=== PATIENT | female | born 1950 | race Caucasian/White ===

== ENCOUNTER → 2018-08-03 12:13 | Outpatient (CLI) | payer MEDICARE, SELFPAY ==
--- NOTE | 2018-08-03 12:19 | XR_ITS ---
XR knee LT 4V HISTORY: ITS.REASON: BILAT KNEE PAIN ORDERING PHYSICIAN: Servando Amor MD PATIENT AGE: 67 years COMPARISON: None FINDINGS: There are moderate osteoarthritic changes of the medial compartment and patellofemoral joint with mild osteoarthritis of the lateral compartment. Osteophyte formation is present at the tibial spines. No fracture or dislocation. No lytic or blastic change. IMPRESSION: Moderate osteoarthritis
--- NOTE | 2018-08-03 12:19 | XR_ITS ---
XR knee RT 4V HISTORY: ITS.REASON: BILAT KNEE PAIN ORDERING PHYSICIAN: Servando Amor MD PATIENT AGE: 67 years COMPARISON: None FINDINGS There are moderate to severe osteoarthritic changes of the medial compartment with mild osteophyte arthritis of the patellofemoral joint and lateral compartment. There is mild to moderate spurring of the distal femur proximal tibia. There is mild lateral displacement of the tibia of approximately 5 mm. No fracture or dislocation. IMPRESSION: Moderate to severe osteoarthritis
== END ==
PROVIDERS: PCP Family Medicine; Visit Provider Family Medicine
DX: M25.562 Pain in left knee (principal); M25.561 Pain in right knee
CPT/HCPCS: 73564

== ENCOUNTER → 2019-05-13 14:08 | Outpatient (CLI) | payer MEDICARE, SELFPAY ==
--- NOTE | 2019-05-13 14:17 | XR_ITS ---
PROCEDURE: XR CHEST 2V CLINICAL HISTORY: COUGH COMPARISON: No exams were available for comparison FINDINGS: The cardiomediastinal silhouette and pulmonary vascularity are within normal limits. COPD changes. No lobar consolidation or collapse. There is a well-circumscribed nodular opacity overlying the T12 vertebral body on the lateral view and may represent a granuloma. Stability may be confirmed with follow-up. Coronary artery calcifications are present.. No acute bony abnormalities. IMPRESSION: No acute finding. COPD with possible granuloma in the lung base posteriorly. Stability may be confirmed with follow-up Dictated by: Ariel Win MD 05/13/2019 15:37 Electronically signed by Ariel Win MD in [place] 05/13/2019 15:37
== END ==
PROVIDERS: PCP Family Medicine; Visit Provider Family Medicine
DX: R05 Cough (principal)
CPT/HCPCS: 71046

== ENCOUNTER → 2019-08-22 09:25 | Outpatient (CLI) | payer MEDICARE, SELFPAY ==
--- NOTE | 2019-08-22 09:34 | XR_ITS ---
PROCEDURE: XR CHEST 2V CLINICAL HISTORY: COUGH Nonsmoker COMPARISON: XR CHEST 2V from 05/13/2019 FINDINGS: The cardiomediastinal silhouette and pulmonary vascularity are within normal limits. The lungs are clear without infiltrates, suspicious nodules, or pleural effusions. There are calcified hilar nodes bilaterally. No acute bony abnormalities. IMPRESSION: No acute findings. Dictated by: Dr. Warren Baker MD 08/22/2019 12:[address] Warren Baker MD in [place] 08/22/2019 12:02
== END ==
PROVIDERS: PCP Family Medicine; Visit Provider Family Medicine
DX: R05 Cough (principal)
CPT/HCPCS: 71046

== ENCOUNTER 2020-10-07 10:02 | Emergency (ER) | payer MEDICARE, MEDICAID, SELFPAY ==
[2020-10-07 10:03] VITALS: BP 207/91; PULSE 105; RESP 18; TEMP 36.6; O2SAT 96; BMI 43.1
--- NOTE | 2020-10-07 10:11 | ECG_ITS ---
APPROVED REPORT Exam: Resting ECG HR:96 bpm ECG Measurements Heart Rate 96 AXES ID 182 P 68 QRSd 84 QRS 22 QT 380 T 68 QTc 480 Conclusion Normal sinus rhythm Normal ECG Electronically signed by : Servando Bass, 10/08/2020 14:30:01
--- NOTE | 2020-10-07 10:17 | HMH.EDGENADL ---
ED Disposition Clinical Impression: Biliary colic, Uterine mass Cholelithiasis Qualifiers: Cholelithiasis location: gallbladder Cholecystitis presence: without cholecystitis Biliary obstruction: without biliary obstruction Qualified Code(s): K80.20 - Calculus of gallbladder without cholecystitis without obstruction Disposition: Home, Self-Care Condition on Discharge: Good Instructions: DI for Gallstones, Fat-Restricted Diet Additional Instructions: Low-fat diet. Follow-up with general surgery, call for appointment for gallstones. Follow-up with [facility] as soon as possible for mass of uterus. Percocet as needed for gallbladder attack, Zofran for nausea. Additional instructions for ABDOMINAL PAIN: See your physician as soon as possible for further evaluation. Return immediately if worsening abdominal pain, vomiting, shortness of breath, fever, vomiting of blood or abdominal distention. Additional instructions for CONTROLLED SUBSTANCES: You have been prescribed a medication that is a controlled substance. Controlled substances include pain medications known as opiates and sedative nerve medications known as benzodiazepines. Tramadol, fioricet, and gabapentin are also controlled substances. Some common opiates include: Codeine (such as Tylenol #3) Hydrocodone (Vicodin, Lortab, Lorcet, Comstock) Oxycodone (Percocet, Percodan, Oxycodone, Oxy IR) Some common benzodiazepines include: Diazepam (Valium) Lorazepam (Ativan) Alprazolam (Xanax) Clonazepam (Klonopin) Oxazepam (Serax) All of these controlled substances are highly addictive and frequently abused. Misuse can and frequently does lead to addiction as well as overdose and . Medication should be stored in a locked cabinet or other secure storage unit. Do not store the medication in a motor vehicle. Short term supplies, 3 days or less, are prescribed because of the highly addictive nature of the medication. Any of the controlled substance medication NOT taken should be disposed of properly and NOT SAVED. The recommended method of disposing of unused medications is: Place the medicines in a sealable plastic bag. If the medicine is a solid, crush it or add water to dissolve it. Add something undesirable (cat litter, coffee grounds, etc.) Dispose of sealed bag in household trash Do not flush or pour unused medicines down a sink or drain. Controlled substances should not be shared, given away or sold. Because of the addictive nature and frequent abuse, these medications are sometimes stolen. These medications should be kept in a safe place where they cannot be stolen. Do not keep them in your car or purse. Lost or stolen prescriptions for controlled substances WILL NOT BE REFILLED in this emergency department, regardless of whether a police report was filed. Prescriptions: Oxycodone HCl/Acetaminophen [Percocet 5/325mg tablet] 1 tab PO Q6HP PRN #10 tablet PRN Reason: Moderate To Severe Pain Transmission Status: Received by [id number] Ondansetron [Zofran 4mg ODT] 4 mg PO TIDP PRN #10 tab.rapdis PRN Reason: Nausea And Vomiting Transmission Status: Pending to [id number] Referrals: Thomas Irvin MD [Primary Care Provider] - - Critical Care Critical Care Time: No Attestation: On , the high probability of a clinically significant, sudden or life threatening deterioration of the following system(s) required my full and direct attention, intervention and personal management. The time I documented below is in addition to time spent performing reported procedures but includes the following listed in this critical care notation. Medical Decision Making - Gabriel Inquiry Pt receiving controlled substance: Yes Gabriel was queried for this patient: Yes Risks and benefits of using a controlled substance: were discussed with pt by me Vital Signs: 10/07/20 10:03 10/07/20 10:30 Temperature 97.8 F Temperature Source
--- NOTE | 2020-10-07 10:22 | CT_ITS ---
PROCEDURE: CT ABDOMEN PELVIS W CON CLINICAL INDICATION: abd pain, n/v COMPARISON: No exams were available for comparison TECHNIQUE: IV Contrast: 75ML OPTIRAY 350 Oral Contrast none given Axial images obtained with sagittal and coronal reformats. All CT scans at the facility use one or more dose reduction, viz: automated exposure control, ma/kV adjustment per patient size (including targeted exams where dose is matched to indication, i.e. head), or iterative reconstruction technique. FINDINGS: Lower thorax: The lower lung rodriguez are clear, there is a small calcified granuloma right posterior gutter ABDOMEN: Liver: No masses or biliary dilatation. Liver parenchyma appears normal. Gallbladder: Gallbladder is normal in size and there is a partially calcified gallstone near the neck gallbladder measuring 1.8 cm.. Pancreas: No masses or peripancreatic fluid collections. Spleen: unremarkable except for a couple of tiny calcified granulomata Adrenals: unremarkable Kidneys/ureters: The kidneys are normal in size and show symmetrical function. There is a tiny 2-3 mm nonobstructing calculus in the pelvis or lower pole calyx left kidney. ABDOMEN & PELVIS: Stomach bowel: There is a small sliding hiatal hernia. The stomach appears normal.. The small bowel is normal. The appendix is surgically absent. There is a moderately large amount of stool in the cecum ascending and transverse colon. The descending colon is decompressed. There are scattered diverticuli of the sigmoid colon but there is no evidence of diverticulitis. Peritoneum: No abnormal fluid collections. No obvious inflammatory changes. No free air. Lymph nodes: No enlarged lymph nodes apparent. Vasculature: No evidence of abdominal aortic aneurysm. There is scattered arteriosclerotic calcification of the lower abdominal aorta and proximal common iliac arteries. No retroperitoneal hemorrhage evident. Bones: No acute fracture PELVIS: Reproductive: The uterus is mildly enlarged and shows a somewhat suspicious appearing heterogenic mass filling and distorting the endometrial cavity with a possible small fluid component as well and large fibroid is a possibility but endometrial carcinoma cannot be excluded. Possibly and ultrasound exam would be of additional help. Bladder: The urinary bladder is decompressed but otherwise appears normal, there is no free fluid in the cul-de-sac.. Appendix: Surgically absent IMPRESSION: 1. Cholelithiasis 2. Mild diverticulosis sigmoid colon without diverticulitis. 3. Enlarged uterus measuring 8.1 x 7.0 x 10.0 cm with heterogenic mass filling the endometrial cavity and suggest clinical correlation for abnormal postmenopausal bleeding and consider follow-up ultrasound of the pelvis for additional evaluation Dictated by: Dr. Warren Baker MD 10/07/2020 11:41 Dr. Warren Baker MD in [place] 10/07/2020 11:41
[2020-10-07 10:30] VITALS: BP 168/69; PULSE 85; RESP 20; O2SAT 95
[2020-10-07 10:32] LABS: Basophils # 0.1 K/mm3 (0-0.2); Basophils % 0.4 % (0.1-2.0); Eosinophils # 0.1 K/mm3 (0.0-0.4); Eosinophils % 0.4 % (0.1-12.0); Hematocrit 44.6 % (37.0-47.0); Hemoglobin 15.2 g/dL (12.2-16.2); Lymphocytes # 1.4 K/mm3 (0.7-4.5); Lymphocytes % 8.8 % (10-50); Mean Corpuscular Hemoglobin 26.7 pg (27.0-31.2); Mean Corpuscular Volume 78.6 fl (81-99); Mean Platelet Volume 7.3 fl (7.4-10.4); Monocytes # 0.5 K/mm3 (0.1-1.0); Monocytes % 3.2 % (1.7-9.3); Neutrophils # 13.7 K/mm3 (1.8-7.8); Neutrophils % 87.2 % (37.0-80.0); Platelet Count 400 K/mm3 (142-424); Red Blood Count 5.68 M/mm3 (4.20-5.40); Red Cell Distribution Width 14.9 % (11.5-17.5); White Blood Count 15.7 K/mm3 (4.8-10.8)
[2020-10-07 10:35] LABS: Alanine Aminotransferase 26 U/L (12-78); Albumin Level 4.8 g/dl (3.5-5.0); Albumin/Globulin Ratio 1.2 (1.1-1.8); Alkaline Phosphatase 137 U/L (38-126); Aspartate Amino Transferase 26 U/L (14-36); Bilirubin,Total 0.6 mg/dl (0.2-1.3); Blood Urea Nitrogen 14 mg/dl (7-17); Calcium 9.4 mg/dl (8.4-10.2); Carbon Dioxide 24 mmol/L (22.0-30.0); Chloride 98 mmol/L (98-107); Creatinine Clearance Estimated 42 mL/min (50-200); Estimated Glomerular Filt Rate 99 ml/min (>60); GFR (African American) 120 ML/MIN (>60); Glucose 143 mg/dl (74-100); Lipase 53 U/L (23-300); MANUAL DIFFERENTIAL MANUAL DIFFERENTIAL (MANUAL DIFF); Sodium 135 mmol/L (136-145); Total Protein,Serum 8.8 g/dl (6.3-8.2)
--- NOTE | 2020-10-07 10:40 | US_ITS ---
PROCEDURE: US GALLBLADDER CLINICAL INDICATION: upper abdo pain COMPARISON: CT CT ABDOMEN PELVIS W CON from 10/07/2020 FINDINGS: Pancreas: Unremarkable/Not well seen but appears essentially normal on the CT exam same date. Liver: Unremarkable. There is appropriate direction of blood flow within a non dilated portal vein. Right kidney: The right kidney measures 11.1 x 5.1 by 5.7 cm appears sonographically normal. Gallbladder: The gallbladder is markedly abnormal with moderate amount of sludge some which appears to be congealed with partially calcified gallstones near the neck of the gallbladder as well. The common bile duct is normal in caliber. IMPRESSION: Cholelithiasis along with biliary sludge, liver pancreas and right kidney appear grossly normal Dictated by: Dr. Warren Baker MD 10/07/2020 12:28 Dr. Warren Baker MD in [place] 10/07/2020 12:28
[2020-10-07 10:52] LABS: Troponin I 0.01 ng/ml (0.00-0.034)
[2020-10-07 10:53] LABS: Eosinophils % 3 % (0-3); Lymphocytes % 4 % (10-50); Monocytes % 6 % (2-9); Myelocytes % 1 (0-1); Neutrophils % 80 % (42-76); Platelet Estimate Normal; Total Cells Counted 100
[2020-10-07 10:54] LABS: Microcytosis 1+
--- NOTE | 2020-10-07 10:58 | PC.NURSE ---
Pt in radiology
--- NOTE | 2020-10-07 11:32 | US_ITS ---
PROCEDURE: US TRANSVAGINAL CLINICAL INDICATION: Pelvic pain and intermittent uterine bleeding in this postmenopausal patient, abnormal CT scan of the pelvis COMPARISON: No exams were available for comparison FINDINGS: The uterus is enlarged as noted on the CT exam. There is distortion and almost complete effacement of the endometrial cavity by heterogenic mass with somewhat poor interface between the mass and what little myometrial tissue visible. The ovaries are not identified either on the transvaginal or transabdominal images. There is no free fluid in the pelvis. IMPRESSION: Enlarged uterus with large mass distorting the endometrial cavity, the poor interface between the mass and periphery of the uterus is somewhat in favor of endometrial carcinoma versus fibroid Dictated by: Dr. Warren Baker MD 10/07/2020 12:22 Dr. Warren Baker MD in [place] 10/07/2020 12:22
[2020-10-07 13:37] VITALS: BP 157/76; PULSE 79; RESP 16; TEMP 36.4; O2SAT 94
== END 2020-10-07 13:37 | disposition home or self-care (01) ==
PROVIDERS: Emergency Provider Emergency Medicine; PCP Emergency Medicine
DX: K80.20 Calculus of gallbladder without cholecystitis without obstruction (principal); K80.50 Calculus of bile duct without cholangitis or cholecystitis without obstruction; N85.8 Other specified noninflammatory disorders of uterus; I10 Essential (primary) hypertension; Z88.2 Allergy status to sulfonamides; Z79.899 Other long term (current) drug therapy
CPT/HCPCS: 74177; 76705; 76830; 80053; 83690; 84484; 85007; 85025; 93005; 96365; 96372; 99283; J2405; Q9967

== ENCOUNTER → 2020-12-04 10:42 | Outpatient (CLI) | payer MEDICARE, MEDICAID, SELFPAY | PROVIDERS: Visit Provider Nurse Practitioner Family | DX: Z01.812 Encounter for preprocedural laboratory examination (principal); Z20.822 Contact with and (suspected) exposure to COVID-19 | CPT/HCPCS: C9803; U0003; U0005 ==

== ENCOUNTER → 2020-12-07 08:17 | Outpatient (CLI) | payer MEDICARE, MEDICAID, SELFPAY | PROVIDERS: Visit Provider Nurse Practitioner Family | DX: Z01.812 Encounter for preprocedural laboratory examination (principal); Z20.822 Contact with and (suspected) exposure to COVID-19 | CPT/HCPCS: C9803; U0003; U0005 ==

== ENCOUNTER → 2021-06-14 16:00 | Outpatient (CLI) | payer MEDICARE, MEDICAID, SELFPAY ==
[2021-06-14 14:55] LABS: Basophils # 0.1 K/mm3 (0-0.2); Basophils % 0.6 % (0.1-2.0); Eosinophils # 0.1 K/mm3 (0.0-0.4); Hemoglobin 15.1 g/dL (12.2-16.2); Lymphocytes # 1.7 K/mm3 (0.7-4.5); Lymphocytes % 19.5 % (10-50); Mean Corpuscular HGB Conc 32.9 g/dL (31.8-35.4); Mean Corpuscular Hemoglobin 28.5 pg (27.0-31.2); Mean Corpuscular Volume 86.5 fl (81-99); Mean Platelet Volume 8.7 fl (7.4-10.4); Monocytes # 0.5 K/mm3 (0.1-1.0); Monocytes % 5.5 % (1.7-9.3); Neutrophils # 6.5 K/mm3 (1.8-7.8); Neutrophils % 73.4 % (37.0-80.0); Platelet Count 365 K/mm3 (142-424); Red Blood Count 5.32 M/mm3 (4.20-5.40); Red Cell Distribution Width 14.9 % (11.5-17.5); White Blood Count 8.9 K/mm3 (4.8-10.8)
[2021-06-14 16:21] LABS: Free T4 (Free Thyroxine) 1.23 ng/dl (0.78-2.19)
[2021-06-14 16:32] LABS: Anion Gap 11.6 mEq/L (5-15); Blood Urea Nitrogen 15 mg/dl (7-17); Calcium 9.4 mg/dl (8.4-10.2); Carbon Dioxide 27 mmol/L (22.0-30.0); Chloride 103 mmol/L (98-107); Estimated Glomerular Filt Rate 99 ml/min (>60); GFR (African American) 120 ML/MIN (>60); Glucose 104 mg/dl (74-100); Potassium 4.6 mmoL/L (3.5-5.1); Sodium 137 mmol/L (136-145)
== END ==
PROVIDERS: Visit Provider Emergency Medicine
DX: I10 Essential (primary) hypertension (principal); Z79.899 Other long term (current) drug therapy
CPT/HCPCS: 80048; 84439; 84443; 85025

== ENCOUNTER → 2022-11-30 07:42 | Outpatient (CLI) | payer MEDICARE, MEDICAID, SELFPAY ==
--- NOTE | 2022-11-30 07:42 | US_ITS ---
FINAL REPORT CLINICAL HISTORY: right upper quad pain COMPARISON: 10/07/2020 FINDINGS: Sonographic images of the right upper quadrant were obtained. The pancreas is partially obscured.The liver has an unremarkable appearance. Multiple gallstones are present in the gallbladder. There is no evidence of biliary ductal dilatation.The common duct measures 3 mm. Limited images of the right kidney are unremarkable. IMPRESSION: Multiple gallstones without biliary ductal dilatation. Reviewed, Interpreted and Dictated by Redd Barrett III, MD Transcribed by Maria Elena Verdin Authenticated and [facility]
[2022-11-30 09:34] LABS: Basophils % 0.5 % (0.1-2.0); Eosinophils # 0.2 K/mm3 (0.0-0.4); Eosinophils % 2.6 % (0.1-12.0); Hematocrit 49.4 % (37.0-47.0); Hemoglobin 15.5 g/dL (12.2-16.2); Lymphocytes # 1.8 K/mm3 (0.7-4.5); Lymphocytes % 24.2 % (10-50); Mean Corpuscular HGB Conc 31.5 g/dL (31.8-35.4); Mean Corpuscular Hemoglobin 27.3 pg (27.0-31.2); Mean Corpuscular Volume 86.6 fl (81-99); Mean Platelet Volume 7.2 fl (7.4-10.4); Monocytes # 0.3 K/mm3 (0.1-1.0); Monocytes % 4.5 % (1.7-9.3); Neutrophils % 68.2 % (37.0-80.0); Platelet Count 328 K/mm3 (142-424); Red Cell Distribution Width 13.7 % (11.5-17.5); White Blood Count 7.3 K/mm3 (4.8-10.8)
[2022-11-30 10:34] LABS: Alanine Aminotransferase 17 U/L (12-78); Albumin Level 4.2 g/dl (3.5-5.0); Albumin/Globulin Ratio 1.2 (1.1-1.8); Alkaline Phosphatase 73 U/L (38-126); Anion Gap 12.3 mEq/L (5-15); Aspartate Amino Transferase 19 U/L (14-36); Blood Urea Nitrogen 23 mg/dl (7-17); Calcium 9.5 mg/dl (8.4-10.2); Carbon Dioxide 34 mmol/L (22.0-30.0); Chloride 99 mmol/L (98-107); Estimated Glomerular Filt Rate 82 ml/min (>60); GFR (African American) 100 ML/MIN (>60); Globulin 3.4 g/dL (1.3-3.2); Glucose 100 mg/dl (74-100); Potassium 4.3 mmoL/L (3.5-5.1); Sodium 141 mmol/L (136-145); Total Protein,Serum 7.6 g/dl (6.3-8.2)
[2022-11-30 10:35] LABS: Bilirubin,Total 0.1 mg/dl (0.2-1.3)
== END ==
PROVIDERS: PCP Emergency Medicine; Visit Provider Surgery
DX: K80.20 Calculus of gallbladder without cholecystitis without obstruction (principal); R10.11 Right upper quadrant pain
CPT/HCPCS: 36415; 76705; 80053; 85025

== ENCOUNTER 2022-12-26 07:59 | Day surgery (SDC) | payer MEDICARE, MEDICAID, SELFPAY ==
[2022-12-23 09:13] VITALS: BMI 30.1
[2022-12-26] VITALS (10 sets, daily range): BP systolic 133–166; BP diastolic 55–76; PULSE 73–91; RESP 16–24; TEMP 36.2–36.7; O2SAT 92–99
--- NOTE | 2022-12-26 08:30 | EXP.GEN.HP ---
HPI HPI HPI: Patient is a 72-year-old female referred by Dr. Irvin's office for gallbladder. Patient had previous symptoms consistent with biliary colic a couple of years ago characterized by epigastric pain radiating into her chest. She underwent she underwent gallbladder ultrasound at that time which revealed gallstones with partially calcified gallstones in the neck of the gallbladder and sludge (congealed). Imaging incidentally revealed uterine mass and she was diagnosed with uterine carcinoma and she underwent laparoscopic hysterectomy. She also previously had appendectomy performed many years ago by Dr. Rehman for ruptured appendicitis. She has not had any significant issues until recently she had similar symptoms consistent with gallbladder attack . This was characterized by acute onset of epigastric pain radiating into her chest and back. She was sent for surgical consultation. The patient states that it is sporadic as far as what foods bother her. For example, she states that she can eat jalapeno peppers but cannot drink orange juice. Patient was seen in the office on 11/24/2022. Options were discussed with her and she did wish to pursue cholecystectomy. Due to transportation issues she wished to wait approximately 1 month for surgery. [facility] Disclaimer: The information contained in this section may have been updated after the patient was seen, as this information can be updated by other users. Medical History Migraine Surgical History History of appendectomy History of hysterectomy for cancer History of tonsillectomy Family History Family history of COPD (chronic obstructive pulmonary disease) Social History Smoking Status: Never smoker alcohol intake: never substance use type: denies use current occupational status: retired Travel in the last 8 weeks: None Review of Systems Review of Systems Review of systems:: pertinent systems reviewed and negative unless documented below Meds Home Medications and Allergies Home Medications Medication Instructions Recorded Confirmed Type cetirizine 10 mg capsule (All Day 10 mg PO DAILY PRN allergy 11/07/22 12/26/22 Rx Allergy (cetirizine)) symptoms #30 caps ondansetron HCl 4 mg tablet 4 mg PO Q8H PRN nausea and 11/07/22 12/26/22 Rx vomiting #30 tabs triamcinolone acetonide 0.1 % 1 applic topical QID itching #80 11/07/22 12/26/22 Rx topical cream grams lisinopril 20 1 tab PO QAM htn 12/26/22 12/26/22 History mg-hydrochlorothiazide 25 mg tablet New Prescriptions to Start Prescriptions: Allergies Allergy/AdvReac Type Severity Reaction Status Date / Time metformin Allergy Severe Anaphylaxis Verified 12/26/22 08:39 Sulfa (Sulfonamide Allergy Severe allergy- Verified 12/26/22 08:39 Antibiotics) SOB lidocaine Allergy Mild burning Verified 12/26/22 08:39 Exam Data for Last 24 hours I & O for Last 24 hours: Intake & Output 12/23/22 12/24/22 12/25/22 12/26/22 11:59 11:59 11:59 11:59 Weight 170 lb Constitutional Constitutional: no acute distress *Routine HEENT Exam Head: Present normocephalic Eye: Present EOMI and PERRL ENT: Present mucous membranes moist *Routine Neck Exam Neck: Present supple; Absent lymphadenopathy *Routine Respiratory Exam Respiratory: Present CTA bilaterally *Routine Cardiovascular Exam Cardiovascular: Present RRR *Routine Abdominal Exam Abdominal: Present soft and normoactive bowel sounds; Absent tenderness *Routine Rectal Exam Rectal:: deferred *Routine Genitalia Exam Genitalia:: deferred *Routine Extremities Exam Extremities: Absent cyanosis, clubbing or edema *Routine Skin Exam Skin: Present warm; Absent rash *Routine Neurological Exam Neurological: Present alert and oriented X3
--- NOTE | 2022-12-26 11:54 | EXP.OP.NOTE ---
Date of procedure: 12/26/22 Pre-op Diagnosis:: Symptomatic gallstones Post-op Diagnosis:: Same Procedure performed:: Laparoscopic cholecystectomy Laparoscopic liver biopsy Surgeon:: Redd Courtney MD Anesthesia: MAYELIN Estimated blood loss (mL): 20 Clinical Note:: Patient is a 72-year-old female referred by Dr. Irvin's office for gallbladder. Patient had previous symptoms consistent with biliary colic a couple of years ago characterized by epigastric pain radiating into her chest. She underwent she underwent gallbladder ultrasound at that time which revealed gallstones with partially calcified gallstones in the neck of the gallbladder and sludge (congealed). Imaging incidentally revealed uterine mass and she was diagnosed with uterine carcinoma and she underwent laparoscopic hysterectomy. She also previously had appendectomy performed many years ago by Dr. Rehman for ruptured appendicitis. She has not had any significant issues until recently she had similar symptoms consistent with gallbladder attack . This was characterized by acute onset of epigastric pain radiating into her chest and back. She was sent for surgical consultation. The patient states that it is sporadic as far as what foods bother her. For example, she states that she can eat jalapeno peppers but cannot drink orange juice. Patient was seen in the office on 11/24/2022. Options were discussed with her and she did wish to pursue cholecystectomy. Due to transportation issues she wished to wait approximately 1 month for surgery. Operative findings:: She had a distended thickened gallbladder with a couple of moderately large gallstones. It was completely obscured with omental adhesions. There was a lesion on the liver adjacent to the falciform ligament of uncertain etiology removed as liver biopsy at the completion of the procedure. Operative note:: Consent was obtained and patient was taken to the operating room. She was given preoperative intravenous antibiotics. In the operating room she was placed in a supine position. General anesthesia was induced via endotracheal tube. Abdomen was prepped and draped in the standard surgical fashion. Subumbilical skin incision was made. While performing abdominal wall lift Veress needle was inserted. CO2 pneumoperitoneum was achieved to 15 mmHg. 11 mm optical trocar was inserted at the umbilicus. She was positioned in reverse Trendelenburg and left side down. A couple of 5 mm trocars were inserted in the right upper abdomen. 10 mm trocar was inserted in the epigastrium. The gallbladder was completely obscured with omental adhesions. Some of these were taken down from the fundus of the gallbladder using JOSE ultrasonic harmonic anne. Gallbladder was then able to be grasped retracted anteriorly and superiorly over the dome of the liver. Adhesions were taken down using blunt dissection and use of JOSE ultrasonic harmonic anne down to the neck of the gallbladder. There were a couple of moderately large stones in the gallbladder. Careful dissection was carried out at the neck of the gallbladder and the visceral peritoneum was incised. The cystic duct and cystic artery were clearly identified in the critical view of safety. The cystic duct was isolated, multiply clipped, and sharply divided. Cystic artery was carefully coagulated with JOSE ultrasonic harmonic anne and divided. Gallbladder was dissected free from the liver in a retrograde fashion using JOSE ultrasonic harmonic anne. Gallbladder was placed within an Endo Catch retrieval device and removed from the peritoneal cavity via the umbilical trocar site which required some extension of the fascial incision for delivery. Gallbladder fossa was inspected for hemostasis which was assured. Limited irrigation was performed. Please note that at the beginning of the procedure during laparoscopic surveillance there was noted to be a nodule on the liver adjacent to the falciform ligament of
--- NOTE | 2022-12-26 12:28 | P.PNANES_ITS ---
[facility] Anesthesia Record Part I Anesthesia Record I Intake, IV Amount: 1,300 Hydration: Adequate Estimated blood loss (mL): 25 Urine output (mL): 0 Blood Products used (#): none Blood Pressure: 153/55 SaO2: 92 Pulse Rate: 83 Airway Patency: Patent Respiratory Rate: 24 Temperature: 97.2 F Patient is:: Awake, Drowsy and Stable Stable to PACU at:: 12:00
--- NOTE | 2022-12-27 07:25 | EXP.ANES.II ---
[facility] Anesthesia Record Part II Anesthesia Record Part II Discharge Time: 12:35 Destination: Surgical Day Care (OP Surgery) PACU nurse assessment reviewed?: Yes Patient Condition:: Good Anesthesia Complications:: None Swallowing reflex intact?: Yes Airway Patency: Patent Cyanosis?: No Blood Pressure: 162/72 SaO2: 99 Respiratory Rate: 18 Pulse Rate: 86 Temperature: 98 F Mental Status: Alert & Oriented Pain level:: 5 Nausea and/or vomitting:: None Intake, IV Amount: 0 Hydration: Adequate
[2022-12-27 07:28] VITALS: BP 162/72; PULSE 86; RESP 18; O2SAT 99
[2022-12-27 07:35] VITALS: TEMP 36.6
== END 2022-12-26 13:10 | disposition home or self-care (01) ==
PROVIDERS: PCP Emergency Medicine; Visit Provider Surgery
PROC: 0FT44ZZ Resection of Gallbladder, Percutaneous Endoscopic Approach (ICD-10-PCS; CPT 47562; principal; 2022-12-26 09:30)
DX: K80.10 Calculus of gallbladder with chronic cholecystitis without obstruction (principal); K76.89 Other specified diseases of liver
CPT/HCPCS: 47379; 47562; 88307; 88313; 96374; J2405

== ENCOUNTER 2023-05-01 13:27 | Outpatient (CLI) | payer MEDICARE, MEDICAID, SELFPAY ==
[2023-05-01 13:49] LABS: Basophils % 0.2 % (0.1-2.0); Eosinophils # 0.2 K/mm3 (0.0-0.4); Eosinophils % 1.8 % (0.1-12.0); Hematocrit 45.1 % (37.0-47.0); Hemoglobin 15.5 g/dL (12.2-16.2); Lymphocytes # 2.3 K/mm3 (0.7-4.5); Lymphocytes % 27.2 % (10-50); Mean Corpuscular HGB Conc 34.4 g/dL (31.8-35.4); Mean Corpuscular Hemoglobin 29.6 pg (27.0-31.2); Mean Corpuscular Volume 86.2 fl (81-99); Mean Platelet Volume 7.8 fl (7.4-10.4); Monocytes # 0.5 K/mm3 (0.1-1.0); Monocytes % 5.8 % (1.7-9.3); Neutrophils # 5.5 K/mm3 (1.8-7.8); Neutrophils % 64.9 % (37.0-80.0); Platelet Count 302 K/mm3 (142-424); Red Blood Count 5.23 M/mm3 (4.20-5.40); Red Cell Distribution Width 13.4 % (11.5-17.5); White Blood Count 8.4 K/mm3 (4.8-10.8)
[2023-05-01 14:37] LABS: Alanine Aminotransferase 21 U/L (12-78); Albumin Level 4.4 g/dl (3.5-5.0); Albumin/Globulin Ratio 1.5 (1.1-1.8); Alkaline Phosphatase 83 U/L (38-126); Anion Gap 12.1 mEq/L (5-15); Aspartate Amino Transferase 24 U/L (14-36); Bilirubin,Total 0.3 mg/dl (0.2-1.3); Blood Urea Nitrogen 19 mg/dl (7-17); Calcium 9.6 mg/dl (8.4-10.2); Carbon Dioxide 26 mmol/L (22.0-30.0); Chloride 102 mmol/L (98-107); Estimated Glomerular Filt Rate 82 ml/min (>60); GFR (African American) 100 ML/MIN (>60); Globulin 2.9 g/dL (1.3-3.2); Glucose 99 mg/dl (74-100); Potassium 4.1 mmoL/L (3.5-5.1); Sodium 136 mmol/L (136-145); Total Protein,Serum 7.3 g/dl (6.3-8.2)
[2023-05-01 14:59] LABS: 25-OH Vitamin D, Total 19.5 ng/mL (30-100)
[2023-05-01 20:03] LABS: Hemoglobin A1C 5.6 % (4.0-6.0)
== END 2023-05-01 23:59 ==
LOC: LAB.DROPOF 13:27
PROVIDERS: PCP Internal Medicine; Visit Provider Internal Medicine
DX: I10 Essential (primary) hypertension (principal); E55.9 Vitamin D deficiency, unspecified; R53.83 Other fatigue; R73.09 Other abnormal glucose; Z68.32 Body mass index [BMI] 32.0-32.9, adult
CPT/HCPCS: 80053; 82306; 83036; 85025

== ENCOUNTER 2023-05-16 09:42 | Outpatient (CLI) | payer MEDICARE, MEDICAID, SELFPAY ==
--- NOTE | 2023-05-16 09:43 | MM_ITS ---
PROCEDURE INFORMATION: Exam: MG Bilateral Screening 3D Mammography Exam date and time: 05/16/2023 9:42 AM Age: 72 years old Clinical indication: Screening mammogram. Family HX of breast cancer TECHNIQUE: Imaging protocol: Bilateral Screening tomosynthesis and 2D mammography including computer-aided detection (CAD) when performed. COMPARISON: No relevant prior studies available. FINDINGS: MAMMOGRAPHY: Breast composition: There are scattered areas of fibroglandular density. Mass: None. Architectural distortion: No new or suspicious architectural distortion. Calcifications: No new or suspicious calcifications are present Asymmetric density: No new or suspicious asymmetric density is present Skin thickening: None. Axillary adenopathy: None. IMPRESSION: No mammographic evidence of malignancy. Recommend annual screening mammography unless otherwise clinically indicated. ASSESSMENT: BI-RADS category 1: Negative
--- NOTE | 2023-05-16 10:10 | CA_ITS ---
APPROVED REPORT EXAM: Comprehensive 2D, Doppler, and color-flow Echocardiogram Computer Networker: Vera Garcia CRT Ht: 5 ft 3 in Wt: 182lbs BSA: 1.86 BP: 152/84 mmHg Indications: Murmur, Obesity, Hypertension/HDD 2D Dimensions LA Volume 39.80 mL LA Volume Index 20.90 mL/m2 (M/F) 16-34 M-Mode Dimensions RVDd 2.75 cm (0.9-2.6) LA Diam 2.78 cm (1.9-4.0) LVDd 4.36 cm (3.5-5.7) LVDs 2.15 cm (3.5-5.7) IVSd 1.72 cm (0.6-1.1) PWd 0.61 cm (0.6-1.1) EF (Teich) 82.20% FS 50.70% EDV (Teich) 85.80 mL TAPSE 1.97 (<1.7) ESV (Teich) 15.30 mL LV Diastology E Decel Time 150 (160-240 msec) E/A Ratio 0.74 MED A' 11.20 cm/s LAT A' 9.50 cm/s Aortic Valve AO Peak GR. 11.80 mmHg Mitral Valve MV A Velocity 90.0 (40-130 cm/s) E/A Ratio 0.74 Pulmonary Valve PV Peak Velocity 91.0 (50-150 cm/s) Tricuspid Valve TR P. Velocity 237.00 cm/s RAP Estimate 10.00 mmHg RVSP 32.50 mmHg Left Ventricle The left ventricle is normal size. The left ventricular systolic function is normal. The left ventricular ejection fraction is within the normal range. There is increased LV wall thickness. There is normal LV segmental wall motion. Transmitral Doppler flow pattern suggests impaired LV relaxation. LVEF is 65%. Right Ventricle The right ventricle is normal size. The right ventricular systolic function is normal. Atria The left atrium size is normal. The right atrium size is normal. There is no Doppler evidence of interatrial shunt. Aortic Valve The aortic valve is normal in structure. No aortic regurgitation is present. Mitral Valve The mitral valve is normal in structure. No evidence of mitral valve stenosis. There is no mitral valve regurgitation noted. Tricuspid Valve The tricuspid valve leaflets are thin and pliable. Trace tricuspid regurgitation. RVSP is 20-25 mmHg. Pulmonic Valve The pulmonary valve is normal in structure. Trace pulmonic regurgitation. Great Vessels The aortic root is normal in size. The ascending aorta is normal in size. IVC is normal in size and collapses >50% with inspiration. Pericardium There is no pericardial effusion. Other Information Study Quality: Fair Conclusion Normal biventricular systolic function. No significant valvular stenosis or regurgitation. Electronically signed by : Edelmira Sanabria MD 05/18/2023 11:34:43
== END 2023-05-16 23:59 ==
LOC: RAD 09:43
PROVIDERS: PCP Internal Medicine; Visit Provider Internal Medicine
DX: Z12.31 Encounter for screening mammogram for malignant neoplasm of breast (principal); R01.1 Cardiac murmur, unspecified
CPT/HCPCS: 77063; 77067; 93306

== ENCOUNTER 2023-08-13 12:41 | Emergency (ER) | payer MEDICARE, MEDICAID, SELFPAY ==
--- NOTE | 2023-08-13 12:51 | ED_ITS ---
Discharge Plan Disposition Patient Disposition: Home, Self-Care Condition: Good Prescriptions Prescriptions: New amoxicillin-pot clavulanate [Augmentin] 500-125 mg tablet 1 tab PO BID 10 Days Qty: 20 0RF No Action All Day Allergy (cetirizine) 10 mg capsule 10 mg PO DAILY PRN (Reason: allergy symptoms) Qty: 90 4RF lisinopril-hydrochlorothiazide 20-25 mg tablet 1 tab PO QAM Qty: 90 4RF triamcinolone acetonide 0.1 % cream 1 applic topical QID Qty: 80 4RF cholecalciferol (vitamin D3) 125 mcg (5,000 unit) capsule 125 mcg PO DAILY 90 Days Qty: 90 4RF Referrals Follow up/Referrals: Rodriguez Godoy, [Primary Care Provider] - See instructions Activity Restrictions/Add. Instructions Additional Instructions/Restrictions: As we discussed, your testing shows positive strep test. You have received a dose of steroids here in the emergency department and I have prescribed a course of antibiotics. Please make sure you stay hydrated. Please return with any new or worsening symptoms, particularly if you have difficulty keeping liquids down, after equal breathing, or other such symptoms Clinical Impressions Clinical Impression: Strep pharyngitis Discharge ED Provider: Ovi Nelson General Adult HPI General Chief complaint: Upper Respiratory Infection Stated complaint: sore throat, fever Time Seen by Provider: 08/13/23 12:51 History of Present Illness HPI narrative: The patient presents with a chief complaint of sore throat. This issue has affected her ability to eat, although she found temporary relief from eating ice cream, which numbed the throat enough to allow swallowing. However, the patient notes that even this strategy failed today, as it caused nausea and an urge to vomit, leading her to stop eating. The patient mentions recent exposure to large crowds at family events, which could potentially explain the exposure to pathogens, though she is unsure if this directly contributed to her current condition. She has a history of sinus infection treated by a doctor, who she has not seen in three years. For regular health maintenance, she sees another doctor, primarily for blood pressure checks. The patient confirms she has no history of diabetes or similar chronic conditions. Please note that above description of symptoms, in this electronic medical record under categorization of recalled from ER triage doctor by RN are reflective of an initial nursing assessment, however, is not reflective of my full history and physical exam that was personally taken and clarified. Consequentially, this preceding description of symptoms, which may include the patient's categorized chief complaint in the EMR, do not reflect my personal clinical impression, and the ultimate description of history of present illness and patient stated complaints should be deferred to this section of the note. Unless stated otherwise or congruent with this section of the note, additional signs, symptoms, or incongruence should be interpreted as inaccurate with my clinical impression. Related Data Previous Rx's Medication Instructions Recorded cetirizine 10 mg capsule (All Day 10 mg PO DAILY PRN allergy 05/01/23 Allergy (cetirizine)) symptoms #90 caps lisinopril 20 1 tab PO QAM htn #90 tabs 05/01/23 mg-hydrochlorothiazide 25 mg tablet triamcinolone acetonide 0.1 % 1 applic topical QID itching #80 05/01/23 topical cream grams cholecalciferol (vitamin D3) 125 125 mcg PO DAILY 90 days #90 caps 05/02/23 mcg (5,000 unit) capsule amoxicillin 500 mg-potassium 1 tab PO BID 10 days #20 tabs 08/13/23 clavulanate 125 mg tablet (Augmentin) Allergies Allergy/AdvReac Type Severity Reaction Status Date / Time metformin Allergy Severe Anaphylaxis Verified 05/01/23 10:57 Sulfa (Sulfonamide Allergy Severe allergy- Verified 05/01/23 10:57 Antibiotics) SOB lidocaine Allergy Mild burning Verified 05/01/23 10:57 [facility] Disclaimer: The information contained in this section may have been updated after the patient was seen, as this information can be updated by other users. Medical History Migraine Surgical History History of appendectomy History of hysterectomy for cancer History of laparoscopic cholecystectomy History of tonsillectomy Family History Other Family history of COPD (chronic obstructive pulmonary disease) Social History Smoking Status: Never smoker alcohol intake: never substance use type: denies use current occupational status: retired Travel in the last 8 weeks: None ROS Obtained: Yes other As per HPI Physical Exam General General appearance: alert and in no apparent distress Head Head exam: atraumatic and normocephalic Eye Eye exam: Present normal appearance Neck Neck exam: Present normal inspection Chest Chest inspection: Present normal inspection and symmetric chest wall rise Respiratory Respiratory exam: Present normal lung sounds bilaterally; Absent respiratory distress Cardiovascular Cardiovascular exam: Present regular rate and normal rhythm Abdominal Exam Abdominal exam: Present soft Neurological Exam Neurological exam: Present alert and oriented X3 Psychiatric Psychiatric exam: Present normal affect and normal mood Skin Skin exam: Present warm and dry Other Other exam information: No trismus, no dysphonia, tolerating secretions, breathing comfortably on room air, oropharyngeal erythema and exudate, no submandibular tenderness, bilateral tympanic membranes within normal limits, Medical Decision Making Medical Records Medical records reviewed: Yes I reviewed the patient's medical records. Gabriel Inquiry Pt receiving controlled substance: No Vital Signs: 08/13/23 12:53 08/13/23 14:15 Temperature 98.1 F 98 F Temperature Source Oral Oral Pulse Rate 81 Pulse Rate [Left Radial] 113 H Respiratory Rate 20 18 Blood Pressure 136/64 Blood Pressure [Right Arm] 150/114 H Blood Pressure Mean [Right Arm] 126 02 Sat by Pulse Oximetry 96 Oxygen Delivery Method Room Air Room Air Lab Data Lab Results 08/13/23 12:48: Group A Strep Rapid Positive A Orders (Tests/Meds): ED MEDICATIONS Discontinued Medications Generic Name Dose Route Start Last Admin Trade Name Sulaimanq PRN Reason Stop Dose Admin Dexamethasone 10 mg 08/13/23 13:41 08/13/23 14:04 Dexamethasone 4mg Tablet PO 08/13/23 13:42 10 mg ONCE ONE Administration Ketorolac Tromethamine 15 mg 08/13/23 13:40 08/13/23 14:03 Ketorolac 30mg/Ml Vial IV 08/13/23 13:41 15 mg ONCE ONE Administration Lidocaine HCl 15 ml 08/13/23 13:40 08/13/23 14:03 Lidocaine 2% Viscous Mamta 15ml Udc PO 08/13/23 13:41 Not Given ONCE ONE ORDERS Category Date Time Status Rapid Strep Scrn Group A [Strep Scrn Group A (Rapid)] Lab 08/13/23 12:48 Completed Stat Medical Decision Narrative: Patient with history and exam per above presenting for evaluation of sore throat Diagnoses considered include strep pharyngitis, viral pharyngitis, patient at this time does not exhibit worrisome signs or symptoms concerning for epiglottitis, peritonsillar abscess, retropharyngeal abscess, mediastinitis, or other acute surgical pathology ED workup and treatment included: ED MEDICATIONS Discontinued Medications Generic Name Dose Route Start Last Admin Trade Name Sulaimanq PRN Reason Stop Dose Admin Dexamethasone 10 mg 08/13/23 13:41 08/13/23 14:04 Dexamethasone 4mg Tablet PO 08/13/23 13:42 10 mg ONCE ONE Administration Ketorolac Tromethamine 15 mg 08/13/23 13:40 08/13/23 14:03 Ketorolac 30mg/Ml Vial IV 08/13/23 13:41 15 mg ONCE ONE Administration Lidocaine HCl 15 ml 08/13/23 13:40 08/13/23 14:03 Lidocaine 2% Viscous Mamta 15ml Udc PO 08/13/23 13:41 Not Given ONCE ONE ORDERS Category Date Time Status Rapid Strep Scrn Group A [Strep Scrn Group A (Rapid)] Lab 08/13/23 12:48 Completed Stat Labs were independently interpreted by me, significant for group A strep positi ve My clinical impression at this time is most consistent with strep pharyngitis. Patient was able to tolerate p.o. intake without difficulty upon repeat evaluation. I discussed my clinical impression with patient and answered all questions. At this time, the evidence for any other entities in the differential is insufficient to warrant any further testing or ED observation. This was explained to the patient. The patient was advised that persistent or worsening symptoms require further evaluation. I confirmed the patient's understanding of this discussion. Critical Care Critical Care Time Critical Care Time: No
[2023-08-13 12:53] VITALS: BP 150/114; PULSE 113; RESP 20; TEMP 36.7; O2SAT 96; BMI 32.5
[2023-08-13 13:08] LABS: Strep Scrn Group A (Rapid) Positive (Negative)
[2023-08-13] MEDS: KETOROLAC 30MG/ML VIAL 15 MG IV (14:03)
[2023-08-13] MEDS: DEXAMETHASONE 4MG TABLET 10 MG PO (14:04)
[2023-08-13 14:15] VITALS: BP 136/64; PULSE 81; RESP 18; TEMP 36.6; O2SAT 98
== END 2023-08-13 14:22 | disposition home or self-care (01) ==
PROVIDERS: Emergency Provider Emergency Medicine; PCP Internal Medicine
DX: J02.0 Streptococcal pharyngitis (principal); R07.0 Pain in throat; R11.0 Nausea
CPT/HCPCS: 87430; 96374; 99284

== ENCOUNTER 2023-08-16 18:15 | Outpatient (CLI) | payer MEDICARE, MEDICAID, SELFPAY ==
[2023-08-16 19:23] LABS: 25-OH Vitamin D, Total 81.5 ng/mL (30-100)
== END 2023-08-16 23:59 | disposition home or self-care (01) ==
LOC: LAB.DROPOF 18:16
PROVIDERS: PCP Internal Medicine; Visit Provider Internal Medicine
DX: E55.9 Vitamin D deficiency, unspecified (principal)
CPT/HCPCS: 82306

== ENCOUNTER 2024-09-02 17:23 | Emergency (ER) | payer MEDICARE, MEDICAID, SELFPAY ==
[2024-09-02 17:32] VITALS: BP 175/85; PULSE 84; RESP 15; TEMP 36.9; O2SAT 98; BMI 34.7
--- NOTE | 2024-09-02 17:43 | HMH.EDGENADL ---
Discharge Plan Disposition Patient Disposition: Home, Self-Care Condition: Good Prescriptions Prescriptions: New methocarbamol 750 mg tablet 750 mg PO HS Qty: 30 0RF No Action cholecalciferol (vitamin D3) 125 mcg (5,000 unit) capsule 125 mcg PO DAILY 90 Days Qty: 90 4RF lisinopril-hydrochlorothiazide 20-25 mg tablet 1 tab PO QAM Qty: 90 4RF triamcinolone acetonide 0.1 % cream 1 applic topical QID Qty: 80 4RF All Day Allergy (cetirizine) 10 mg capsule 10 mg PO DAILY PRN (Reason: allergy symptoms) Qty: 90 4RF Referrals Follow up/Referrals: Lalo Monae DO [Primary Care Provider, Family Practice] - See instructions Activity Restrictions/Add. Instructions Additional Instructions/Restrictions: Please return to the emergency department with any worsening signs or symptoms, please follow-up with your PCP/primary care doctor, please utilize muscle relaxer as needed for symptomatic relief, could also benefit from ice, physical therapy, MRI of the lumbar spine can be obtained if symptoms do not improve, can also use anti-inflammatory medication as needed for symptomatic relief such as ibuprofen and Tylenol. Clinical Impressions Clinical Impression: Anterolisthesis of lumbar spine, Acute lumbar myofascial strain Instructions Patient Instructions: DI for Low Back Pain Print Language Print Language: [place] Discharge ED Provider: Caleb Cristobal General Adult HPI <DAWOOD Oropeza - Last Filed: 09/02/24 18:55> General Chief complaint: Back Pain/Injury Stated complaint: Lower bent over and back popped Time Seen by Provider: 09/02/24 17:32 Mode of Arrival: Ambulatory Source of Information: Patient Description of Symptoms (Recalled from ER Triage Doc. by RN): Patient states she bent over Monday08/31/24 afternoon and felt something pop in her lower back and has been having pain in lower back since. Patient states sometimes the pain will radiate down her left leg. Patient states she took 800 mg Ibuprofen at 1230. Denies any difficulty urinating. History of Present Illness HPI narrative: 74-year-old female presents emergency department with left lower back pain, started when the patient bent over , on 08/31/2024 describes a pop , denies any real radicular type symptomatology, however she does have some pain extending into the buttock, left worse than right at times, denies any fever chills chest pain shortness of breath nausea vomiting constipation diarrhea, no abdominal pain, no urinary type symptomatology, no hematuria, melena hematochezia or hematemesis, denies any upper or lower extremity weakness, denies any urinary bladder or bowel dysfunction, denies saddle anesthesia, patient is a former smoker, denies any alcohol or drug use, has other past medical history consistent with degenerative disc disease, hypertension, vitamin D deficiency, patient is utilize ibuprofen 800 mg, and this does provide relief to her symptomatology, patient also gets relief with certain positions and movements, especially laying on my right side . Vitals are unremarkable. Onset (ago): day(s) Related Data Previous Rx's ?Medication ?Instructions ?Recorded cholecalciferol (vitamin D3) 125 125 mcg PO DAILY 90 days #90 caps 05/02/23 mcg (5,000 unit) capsule lisinopril 20 1 tab PO QAM htn #90 tabs 07/26/24 mg-hydrochlorothiazide 25 mg tablet cetirizine 10 mg capsule (All Day 10 mg PO DAILY PRN allergy 08/16/24 Allergy (cetirizine)) symptoms #90 caps triamcinolone acetonide 0.1 % 1 applic topical QID itching #80 08/16/24 topical cream grams methocarbamol 750 mg tablet 750 mg PO HS #30 tabs 09/02/24 Allergies Allergy/AdvReac Type Severity Reaction Status Date / Time metformin Allergy Severe Anaphylaxis Verified 09/02/24 17:36 Sulfa (Sulfonamide Allergy Severe allergy- Verified 09/02/24 17:36 Antibiotics) SOB lidocaine Allergy Mild burning Verified 09/02/24 17:36 [facility] <DAWOOD Oropeza - Last Filed: 09/02/24 18:55> [facility] Disclaimer: The information contained in this section may have been updated after the patient was seen, as this information can be updated by other users. Medical History Migraine Surgical History History of laparoscopic cholecystectomy History of appendectomy History of tonsillectomy History of hysterectomy for cancer Family History Other Family history of COPD (chronic obstructive pulmonary disease) Social History Smoking Status: Never smoker alcohol intake: never substance use type: denies use current occupational status: retired Travel in the last 8 weeks?: None Have you lived/traveled outside US in past 30 days?: No Contact w/someone who lives/traveled outside US past 30 days?: No Exposure to someone with infectious disease in past 14 days?: No Do you have a fever (greater than 100.4 F or 38 C)?: No Have you tested positive for COVID-19?: No Exposed to someone with COVID-19 in past 14 days?: No Do you have a sore throat?: No Do you have a cough?: No Do you have any weakness?: No Do you have any diarrhea?: No Are you experiencing any unusual bleeding?: No Do you have any muscle aches/pain?: No Do you have any abdominal pain?: No Are you experiencing loss of taste or smell?: No Other Medical History Have you received the Flu Vaccine for this season: No Have you received the Pneumonia Vaccine: No <DAWOOD Oropeza - Last Filed: 09/02/24 18:55> ROS Obtained: Yes All systems reviewed & no additional complaints except as documented Physical Exam <DAWOOD Oropeza - Last Filed: 09/02/24 18:55> General General appearance: alert and in no apparent distress Head Head exam: atraumatic and normocephalic Eye Eye exam: Present PERRL and EOMI ENT ENT exam: Present mucous membranes moist Neck Neck exam: Present normal inspection Chest Chest inspection: Present normal inspection and symmetric chest wall rise Respiratory Respiratory exam: Present normal lung sounds bilaterally; Absent respiratory distress Cardiovascular Cardiovascular exam: Present regular rate and normal rhythm Abdominal Exam Abdominal exam: Present soft; Absent tenderness Extremities Exam Extremities exam: Present normal inspection Back Exam Back exam: Present normal inspection, tenderness, muscle spasm and paraspinal tenderness; Absent full ROM or vertebral tenderness Comment: Negative straight leg test bilaterally, mild paraspinal tenderness palpation to the left, negative C-spine T-spine L-spine tenderness palpation, no step-offs or deformities, negative C-spine paraspinal tenderness palpation, negative T-spine paraspinal tenderness palpation Neurological Exam Neurological exam: Present alert, oriented X3 and other (5 out of 5 strength in the bilateral lower and upper extremities, no gross sensation deficit) Psychiatric Psychiatric exam: Present normal affect Skin Skin exam: Present warm and dry Medical Decision Making <DAWOOD Oropeza - Last Filed: 09/02/24 18:55> Medical Records Medical records reviewed: Yes I reviewed the patient's medical records. Screening: Per USPSTF and CDC recommendations, given the prevalence of disease in our region, it is our hospital?s policy to screen for HIV and viral Hepatitis for all patients aged 18 and over and those with ongoing risk factors. Gabriel Inquiry Pt receiving controlled substance: No Gabriel was queried for this patient: No Vital Signs: 09/02/24 17:32 09/02/24 19:03 Temperature 98.4 F 98.0 F Temperature Source Oral Pulse Rate 89 Pulse Rate [Left Radial] 84 Respiratory Rate 15 16 Blood Pressure 170/80 H Blood Pressure [Left Arm] 175/85 H Blood Pressure Mean [Left Arm] 115 Blood Pressure Source [Left Arm] Automatic Cuff 02 Sat by Pulse Oximetry 98 Oxygen Delivery Method Room Air Orders (Tests/Meds): ED MEDICATIONS Discontinued Medications Generic Name Dose Route Start Last Admin Trade Name Freq PRN Reason Stop Dose Admin Lidocaine 1 each 09/02/24 17:51 09/02/24 18:02 Lidocaine 5% Transdermal Patch TD 09/02/24 17:52 1 each ONCE ONE Administration ORDERS Category Date Time Status CT lumbar spine wo con Stat Cat Scan 09/02/24 17:51 Completed Medical Decision Narrative: 74-year-old female presents emergency department with left lower lumbar spine pain, no real radicular symptomatology at this time, differential diagnose include not limited, degenerative disc disease, acute lumbar sacral strain, pathologic osteoporotic compression fracture, facet arthropathy among others. I discussed this patient's case with attending physician Dr. Cristobal Will give lidocaine/Lidoderm patch, for symptomatic relief, will obtain CT lumbar spine without contrast as patient is currently pain-free right now after taking ibuprofen 100 mg p.o. prior to coming to the emergency department. I reviewed the patient's CT cervical spine without contrast along the corresponding radiologic report, moderate loss of intervertebral disc space degenerative disc changes involving L2-S1 greatest at L2-L3, grade 1 anterior thesis related degenerative changes L4-L5, no evidence of acute osseous abnormality. I discussed the results with the patient at the bedside, patient need to follow-up with her PCP, I will prescribe short course/low-dose muscle relaxer methocarbamol 750 mg p.o. as needed for symptomatic relief, patient will utilize lidocaine/Lidoderm patches, recommend other anti-inflammatories as needed for symptomatic relief, recommend follow-up with PCP, potential physical therapy/MRI of the lumbar spine for further evaluation/treatment, patient was given strict ED return precautions, patient voiced understanding and agreed with current treatment plan/discharge plan. Patient has no red flag signs or symptoms, no saddle anesthesia, no urinary bladder or bowel dysfunction, has good strength in the bilateral lower and upper extremities. <Caleb Cristobal MD - Last Filed: 09/02/24 19:59> Vital Signs: 09/02/24 17:32 09/02/24 19:03 Temperature 98.4 F 98.0 F Temperature Source Oral Pulse Rate 89 Pulse Rate [Left Radial] 84 Respiratory Rate 15 16 Blood Pressure 170/80 H Blood Pressure [Left Arm] 175/85 H Blood Pressure Mean [Left Arm] 115 Blood Pressure Source [Left Arm] Automatic Cuff 02 Sat by Pulse Oximetry 98 Oxygen Delivery Method Room Air Orders (Tests/Meds): ED MEDICATIONS Discontinued Medications Generic Name Dose Route Start Last Admin Trade Name Freq PRN Reason Stop Dose Admin Lidocaine 1 each 09/02/24 17:51 09/02/24 18:02 Lidocaine 5% Transdermal Patch TD 09/02/24 17:52 1 each ONCE ONE Administration ORDERS Category Date Time Status CT lumbar spine wo con Stat Cat Scan 09/02/24 17:51 Completed Medical Decision Narrative: 74-year-old female presents emergency department with left lower lumbar spine pain, no real radicular symptomatology at this time, differential diagnose include not limited, degenerative disc disease, acute lumbar sacral strain, pathologic osteoporotic compression fracture, facet arthropathy among others. I discussed this patient's case with attending physician Dr. Cristobal Will give lidocaine/Lidoderm patch, for symptomatic relief, will obtain CT lumbar spine without contrast as patient is currently pain-free right now after taking ibuprofen 100 mg p.o. prior to coming to the emergency department. I reviewed the patient's CT cervical spine without contrast along the corresponding radiologic report, moderate loss of intervertebral disc space degenerative disc changes involving L2-S1 greatest at L2-L3, grade 1 anterior thesis related degenerative changes L4-L5, no evidence of acute osseous abnormality. I discussed the results with the patient at the bedside, patient need to follow-up with her PCP, I will prescribe short course/low-dose muscle relaxer methocarbamol 750 mg p.o. as needed for symptomatic relief, patient will utilize lidocaine/Lidoderm patches, recommend other anti-inflammatories as needed for symptomatic relief, recommend follow-up with PCP, potential physical therapy/MRI of the lumbar spine for further evaluation/treatment, patient was given strict ED return precautions, patient voiced understanding and agreed with current treatment plan/discharge plan. Patient has no red flag signs or symptoms, no saddle anesthesia, no urinary bladder or bowel dysfunction, has good strength in the bilateral lower and upper extremities. I was consulted by the BRANDY, and we discussed the complexity of the problems being addressed. I approved the treatment and management plan for this patient's care in the Emergency Department, thus performing a substantive portion of the medical decision making. Caleb Cristobal MD Critical Care <DAWOOD Oropeza - Last Filed: 09/02/24 18:55> Critical Care Time Critical Care Time: No
--- OUTSIDE RECORDS SUMMARY | 2024-09-02 17:46 | XMS_ITS | Encounter Summary ---
Author Organization Healthcare Address [address] [place] [address] Care Team Providers Care Foreman[employer] Name Role Phone Ivan Trevino MD Unavailable [phone] Thomas Irvin MD Primary Care Provider [phone] Ivan Trevino MD Unavailable [phone] Encounter Details Date Type Department Care Team (Late st Contact Info) Description 10/23/2020 Lab Requisition [facility] [address] [place] [address] Demetris Erickson MD [address] [facility] [address] [place] [address] Postmenopausal bleeding Social History Tobacco Use Types Packs/Day Years Used Date Smoking Tobacco: Never Assessed Comments Unknown Sex and Gender Information Value Date Recorded Sex Assigned at Female 12/11/2020 6:53 AM EDT Legal Sex Female 8:06 PM EDT Gender Identity Female 12/11/2020 6:53 AM EDT Sexual Orientation Not on file documented as of this encounter Plan of Treatment Not on file documented as of this encounter Procedures Procedure Name Priority Date/Time Associated Diagnosis Comments CYTOLOGY CONSULT 10/23/2020 3:38 PM EDT Postmenopausal bleeding documented in this encounter Results * Cytology Consult (10/23/2020 3:38 PM EDT) Case Report Cytology Case: [id number] Authorizing Provider: Demetris Erickson MD Collected: 10/23/2020 1538 Ordering Location: [facility] Received: 10/23/2020 1532 Pathologist: Jessica Funes MD Specimen: Cervical, [id number] 10/26/2020 2:32 PM EDT [facility] Final Diagnosis A. CERVICAL PAP TEST (OUTSIDE CASE, COLLECTED 10.14.20): - NEGATIVE FOR INTRAEPITHELIAL LESION OR MALIGNANCY. - SATISFACTORY FOR EVALUATION; PRESENCE OF TRANSFORMATION ZONE CANNOT BE DETERMINED DUE TO ATROPHY. 10/26/2020 2:32 PM EDT [facility] at 1432 EDT Clinical Information Postmenopausal bleeding 10/26/2020 2:32 PM EDT [facility] Gross Description A. [id number] For clinical data and diagnosis (Negative) for this specimen ([id number]/THINPR EP PAP) see final report issued by [facility] Pathology Department. 10/26/2020 2:32 PM EDT [facility] Cervix uteri structure / Unknown 10/23/2020 3:38 PM EDT 10/23/2020 3:39 PM EDT us Demetris Erickson MD LAB PATHOLOGY ORDERABLES F inal Result [facility] [address] [place] [address] documented in this encounter Visit Diagnoses Diagnosis Postmenopausal bleeding documented in this encounter Care Teams Foreman[employer] Relationship Specialty Start Date End Date Thomas Irvin MD [address] [place] [address] PCP - General 10/30/20 Ivan Trevino MD [address] [place] [address] Referring Physician Gynecology 10/16/20 Ivan Trevino MD [address] [place] [address] Referring Physician Gynecology 10/30/20 documented as of this encounter
--- OUTSIDE RECORDS SUMMARY | 2024-09-02 17:46 | XMS_ITS | Clinical Summary ---
Author Organization Healthcare Address [address] [place] [address] Care Team Providers Care Nurses Medical Assistants Phlebotomists Name Role Phone Ivan Trevino MD Unavailable [phone] Thomas Irvin MD Primary Care Provider [phone] Ivan Trevino MD Unavailable [phone] Allergies Active Allergy Reactions Criticality Noted Date Comments Gramineae Pollens Runny nose Low 11/06/2020 Sulfa Drugs Fever Medium 10/30/2020 Medications cetirizine (ZyrTEC) 10 MG tablet Take 10 mg by mouth if needed. Active ibuprofen 400 MG tablet Take 400 mg by mouth every 6 (six) hours if needed for moderate pain. Active lisinopril 20 MG tablet Take 1 tablet (20 mg total) by mouth 1 (one) time each day. 30 tablet 11 01/13/2021 Active Active Problems Problem Noted Date Diagnosed Date Class 3 severe obesity in adult 12/11/2020 Endometrial cancer, grade I 10/29/2020 Cancer Staging:Clinical stage from 01/13/2021:FIGO Stage IB, calculated as Stage Unknown(cT1b, cNX, cM0) - Unsigned PMB (postmenopausal bleeding) 10/29/2020 Hypertension 10/29/2020 Diverticulosis 10/29/2020 Cholelithiasis 10/29/2020 Family History Medical History Relation Name Comments Cancer Maternal Grandmother Relation Name Status Comments Maternal Grandmother Social History Tobacco Use Types Packs/Day Years Used Date Smoking Tobacco: Former Cigarettes Q uit: 04/01/2019 Smokeless Tobacco: Never Alcohol Use Standard Drinks/Week Comments Never 0 (1 standard drink = 0.6 oz pur e alcohol) Education Answer Date Recorded What is the highest level of school you have completed or the highest degree you have received? 12th grade 10/30/2020 Comments No Sex and Gender Information Value Date Recorded Sex Assigned at Female 12/11/2020 6:53 AM EDT Legal Sex Female 8:06 PM EDT Gender Identity Female 12/11/2020 6:53 AM EDT Sexual Orientation Not on file Last Filed Vital Signs Vital Sign Reading Time Taken Comments Blood Pressure 103/70 02/01/2021 9:02 AM EST Pulse 95 02/01/2021 9:02 AM EST Temperature 36.7 C (98.1 F) 02/01/2021 9:02 AM EST Respiratory Rate 16 02/01/2021 9:02 AM EST Oxygen Saturation 96% 02/01/2021 9:02 AM EST Inhaled Oxygen Concentration - - Weight 97.2 kg (214 lb 4.6 oz) 02/01/2021 9:02 A M EST Height 157.5 cm (5' 2 ) 01/13/2021 12:54 PM EDT Body Mass Index 39.19 01/13/2021 12:54 PM EDT Plan of Treatment Health Maintenance Due Date Last Done Comments [facility]-Bone Density Scan 1950 [facility]-Depression Screening 1950 [facility]-/Child/Adol SDOH Screenings 1950 [facility]- SDOH Screenings 08/20/1969 [facility]-Adult SDOH Screenings 08/20/1969 [facility]-DTaP,Tdap,and Td Vaccine s (1 - Tdap) 08/20/1970 CT Colonography 08/20/1996 Colonoscopy 08/20/1996 FIT-DNA 08/20/1996 FIT 08/20/1996 FOBT 08/20/1996 Sigmoidoscopy 08/20/1996 [facility]-Colorectal Cancer Screening 08/20/1996 [facility]-Pneumococcal Vaccine: 50 + Years (1 of 1 - PCV) 08/20/2001 [facility]-Zoster Vaccines (1 of 2) 08/20/2001 [id number] Vaccine (1 - 20 24-25 season) 2023 [facility]-Influenza Vaccine (Seas[place] n Ended) 2024 [facility]-RSV Vaccine: 60+ Years o r (1 - 1-dose 75+ series) 08/20/2026 HPV Vaccines Aged Out No longer eligi ble based on patient's age to complete this topic [facility]-HIB Vaccines Aged Out No longer e ligible based on patient's age to complete this topic [facility]-Hepatitis A Vaccines Aged Out No longer eligible based on patient's age to complete this topic [facility]-IPV Vaccines Aged Out No longer e ligible based on patient's age to complete this topic [facility]-Rotavirus Vaccines Aged Out No lo nger eligible based on patient's age to complete this topic Insurance [employer] Care Teams Nurses Medical Assistants Phlebotomists Relationship Specialty Start Date End Date Thomas Irvin MD [address] [place] [address] PCP - General 10/30/20 Ivan Trevino MD [facility] [place] [address] Referring Physician Gynecology 10/16/20 Ivan Trevino MD [facility] [place] [address] Referring Physician Gynecology 10/30/20
--- NOTE | 2024-09-02 17:51 | CT_ITS ---
PROCEDURE INFORMATION: Exam: CT Lumbar Spine Without Contrast Exam date and time: 09/02/2024 5:58 PM Age: 74 years old Clinical indication: Low back pain; Additional info: Left lower back pain TECHNIQUE: Imaging protocol: Computed tomography of the lumbar spine without contrast. Radiation optimization: All CT scans at this facility use at least one of these dose optimization techniques: automated exposure control; mA and/or kV adjustment per patient size (includes targeted exams where dose is matched to clinical indication); or iterative reconstruction. COMPARISON: CT ABDOMEN PELVIS W CON 10/07/2020 10:59 AM FINDINGS: Bones/joints: Moderate loss of intervertebral disc space with degenerative changes involving L2 through S1 greatest at L2-L3. Grade 1 anterolisthesis related to degenerative changes of L4-L5. The vertebral bodies are maintained in height and alignment. No evidence of acute osseous abnormality. Adrenal glands: Left adrenal nodule measures 11 mm in diameter similar to prior exam. Vasculature: Moderate calcific atherosclerotic disease of the abdominal aorta without aneurysmal dilatation is present. Soft tissues: Unremarkable. IMPRESSION: 1. Moderate loss of intervertebral disc space with degenerative changes involving L2 through S1 greatest at L2-L3. 2. Grade 1 anterolisthesis related to degenerative changes of L4-L5. 3. No evidence of acute osseous abnormality.
[2024-09-02] MEDS: LIDOCAINE 5% TRANSDERMAL PATCH 1 EACH TD (18:02)
[2024-09-02 19:03] VITALS: BP 170/80; PULSE 89; RESP 16; TEMP 36.7; O2SAT 99
--- NOTE | 2024-09-03 12:09 | CARE MANAGER ---
Contacted Ariane Espitia in the ER. Patient's insurance will not cover Methocarbamol, but should Tizanidine or Cyclobenzaprine.
== END 2024-09-02 19:04 | disposition home or self-care (01) ==
PROVIDERS: Emergency Provider Emergency Medicine; PCP Internal Medicine
DX: M43.16 Spondylolisthesis, lumbar region (principal); S39.012A Strain of muscle, fascia and tendon of lower back, initial encounter; X50.0XXA Overexertion from strenuous movement or load, initial encounter
CPT/HCPCS: 72131; 99284